=== PATIENT | male | born 1965 | race Caucasian/White ===

== ENCOUNTER 2021-07-29 05:05 | Emergency (ER) | payer OTHER ==
[~2021-07-29] VITALS: Ht 188 cm; Wt 81.7 kg
[~2021-07-29 05:05] MED LIST: ATENOLOL 25 MG25 M1 PG; OXYCONTIN60 MG PO; PERCOCET 10-321 EACH PO; VERAPAMIL E.R240 M1 PO
[2021-07-29 05:15] VITALS: BP 126/99
== END 2021-07-29 06:14 | disposition home or self-care (01) ==
LOC: ER 05:05
DX: M54.50 Low back pain, unspecified (principal); G89.29 Other chronic pain; I10 Essential (primary) hypertension; Z79.899 Other long term (current) drug therapy